=== PATIENT | female | born 1955 | race African-American/Black ===

== ENCOUNTER → 2020-01-14 | Outpatient (CLI) | payer BC ==
[~2020-01-14] MED LIST: ACETAMINOPHEN325 M1 PO; CAL-MAG-ZINC T1 EACH PO; CAYENNE PO; IRON18 MG PO; LORTAB 5 MG/5001 TA1 PO; MSM500 MG PO; MULTIPLE VITAM1 EAC1 PO; ZOLOFT OR; [UNRECOGNIZED DRUG - OTHER] PO; [UNRECOGNIZED DRUG - REMARK] PO
== END ==
LOC: RAD 14:09
PROVIDERS: ATTEND Family Medicine
DX: M25.551 Pain in right hip (principal); M25.552 Pain in left hip